=== PATIENT | male | born 1955 | race Caucasian/White ===

== ENCOUNTER 2016-09-09 06:02 | Outpatient (CLI) ==
[2014-06-13 21:22] VITALS: BMI 23.0
[2016-09-09 06:41] LABS: BASOPHILS # (AUTO) 0.1 K/uL (0-0.2); BASOPHILS % (AUTO) 0.7 % (0.0-3.0); EOSINOPHILS # (AUTO) 0.2 K/ul (0.0-0.7); EOSINOPHILS % (AUTO) 3.1 % (0.0-7.0); HEMATOCRIT 44.3 % (42.0-52.0); HEMOGLOBIN 15.8 g/dl (14.0-18.0); IMMATURE GRANULOCYTE % (AUTO) 0.3 % (0.0-5.0); LYMPHOCYTES # (AUTO) 2.4 K/uL (0.60-3.4); LYMPHOCYTES % (AUTO) 35.8 (10.0-50.0); MEAN CORPUSCULAR HEMOGLOBIN 34.2 pg (27.0-31.0); MEAN CORPUSCULAR HGB CONC 35.7 (31.8-35.4); MEAN CORPUSCULAR VOLUME 95.9 fl (80.0-94.0); MONOCYTES # (AUTO) 0.6 K/uL (0.4-2.0); MONOCYTES % (AUTO) 9.5 (0-10); NEUTROPHILS # (AUTO) 3.4 K/ul (2.0-6.9); NEUTROPHILS % (AUTO) 50.6; PLATELET COUNT 363 10^3/uL (140-440); RED BLOOD COUNT 4.62 10^6/ul (4.70-6.10); WHITE BLOOD COUNT 6.76 K/ul (4.2-10.2)
== END 2016-09-09 06:03 | disposition home or self-care (01) ==
LOC: LAB 06:02
PROVIDERS: ATTEND Nurse Practitioner Family
DX: I10 Essential (primary) hypertension (principal); Z12.5 Encounter for screening for malignant neoplasm of prostate
CPT/HCPCS: 36415; 84439; 84443; 85025

== ENCOUNTER 2016-11-17 18:16 | Outpatient (CLI) ==
[2016-10-11 10:37] VITALS: BMI 23.0
[2016-11-17 19:04] LABS: ALBUMIN 3.9 g/dL (3.4-5.0); ALBUMIN/GLOBULIN RATIO 1.5; ANION GAP 12.8; BILIRUBIN,TOTAL 0.52 mg/dL (0.00-1.20); BUN/CREATININE RATIO 10.57; CALCIUM 9.4 mg/dL (8.2-10.2); CREATININE 1.04 mg/dL (0.60-1.10); POTASSIUM 3.8 mmol/L (3.5-5.1); TOTAL PROTEIN 6.5 g/dL (5.8-8.1)
== END 2016-11-17 18:17 | disposition home or self-care (01) ==
LOC: LAB 18:16
PROVIDERS: ATTEND Dermatology
DX: L40.0 Psoriasis vulgaris (principal); Z79.899 Other long term (current) drug therapy
CPT/HCPCS: 36415; 80053

== ENCOUNTER 2017-01-30 06:46 | Day surgery (SDC) ==
[2016-10-11 10:37] VITALS: BMI 23.0
[2017-01-30] MEDS ORDERED: LIDOCAINE 1% 20 ML MDV ID ONE (07:15)
[2017-01-30] MEDS ORDERED: VERSED ONE (08:29)
[2017-01-30] MEDS ORDERED: DIPRIVAN 20 ML VIAL IVP ONE (08:29)
[2017-01-30 09:59] VITALS: BP 145/88; TEMP 97.6
--- NOTE | 2017-01-30 13:09 | OP ---
PROCEDURE: COLONOSCOPY TO THE CECUM WITH SNARE POLYPECTOMY. ENDOSCOPIST: Eladio MOREAU M.D. INDICATION: SCREENING. INSTRUMENT: PCFH-190. MEDICATION: PER ANESTHESIA. PROCEDURE: The patient was positioned for colonoscopy. The digital rectal exam was negative. The colonoscope was inserted through the anus and advanced to the cecum. The cecum was identified using the ileocecal valve and the appendiceal orifice as landmarks. The scope was slowly withdrawn through an adequately prepped colon. A 1.2 cm sessile polyp in the ascending colon is removed using snare cautery. This had a sessile serrated appearance. Complete resection was achieved. The remaining colon was normal with exception of diverticula. Retroflex exam was negative. The patient tolerated the procedure without immediate complication. Withdrawal time 10 minutes and 5 seconds. PLAN: 1. Suggest repeat colonoscopy in one to three years pending pathology report. BENSON
== END 2017-01-30 09:45 | disposition home or self-care (01) ==
LOC: SURG 06:46
PROVIDERS: ATTEND Internal Medicine Gastroenterology
DX: Z12.11 Encounter for screening for malignant neoplasm of colon (principal); D12.2 Benign neoplasm of ascending colon; K57.30 Diverticulosis of large intestine without perforation or abscess without bleeding

== ENCOUNTER 2017-07-20 09:38 | Outpatient (CLI) ==
[2016-10-11 10:37] VITALS: BMI 23.0
--- NOTE | 2017-07-20 14:27 | NM ---
EXAM: Whole body bone scan HISTORY: Carcinoma prostate COMPARISON: None. TECHNIQUE: Anterior and posterior whole body bone scans were obtained following the intravenous admin istration of 26.8 mCi of technetium 99m MDP, followed by spot views of the chest. FINDINGS: There is a intense focal activity involving the left anterior fourth rib. This could be tr aumatic or metastatic. There is a small focal activity as cervical thoracic junction. Increased iso marcie uptake is also seen involving both AC joints and mid lumbar spine compatible with arthritic smith ge. Right hip and right knee prosthesis are seen. Kidneys and soft tissues appear normal. IMPRESSION: 1. Intense focal activity in the left anterior fourth ribs. Another small focal uptake and cervical thoracic junction. Another small focus of mildly increased activity left posterior tenth rib. These lesions could be traumatic or metastatic. Radiographic correlation and follow up recommended. 2. Right hip and right knee prosthesis are visualized. 3. Degenerative changes.
== END 2017-07-20 09:39 | disposition home or self-care (01) ==
LOC: RAD 09:38
PROVIDERS: ATTEND Urology
DX: C61 Malignant neoplasm of prostate (principal)
CPT/HCPCS: 36415

== ENCOUNTER 2017-08-22 06:59 | Outpatient (CLI) ==
[2016-10-11 10:37] VITALS: BMI 23.0
--- NOTE | 2017-08-22 09:22 | CT ---
EXAM: CT abdomen with and without contrast. CT pelvis with and without contrast. HISTORY: Prostate cancer. Frequent urination. COMPARISON: None available. TECHNIQUE: Multiple axial images of the abdomen and pelvis were obtained prior to and following intr avenous administration of 100 mL of Visipaque 320, low osmolar. Images reformatted in the coronal an d sagittal plane. Maximum intensity projection and 3-D reformatted images were created on an [employer] workstation. FINDINGS: Lung bases are clear. There has been previous right hip arthroplasty. Old rib fractures n oted. No osteoblastic lesions are seen. Gallbladder is absent. The liver, pancreas, spleen, adrenal glands are unremarkable. No calcified r enal stones or hydronephrosis detected. There is symmetric renal enhancement and excretion. No alondra ecting system filling defects are seen. The opacified portions of the ureters appear normal although the entirety of the ureters are not opacified with contrast on delayed imaging. No bladder masses a re seen. Prostate measures approximately 4.5 x 3.5 x 3.6 cm. No localized abnormality is detected. No pelvic lymphadenopathy identified although beam-hardening artifact in the right hip arthroplasty d oes somewhat limit evaluation. No iliac chain, retroperitoneal or mesenteric lymphadenopathy identif ied. The bowel is normal in course and caliber without evidence for obstruction or inflammatory process. The appendix is not identified. There may be a small sliding hiatal hernia. Atherosclerotic calcifications present. No free fluid or free air is seen. Fat-containing right in guinal hernia suggested. IMPRESSION: No evidence for metastatic disease in the abdomen or pelvis.
== END 2017-08-22 07:00 | disposition home or self-care (01) ==
LOC: RAD 06:59
PROVIDERS: ATTEND Urology
DX: C61 Malignant neoplasm of prostate (principal)
CPT/HCPCS: 36415; 80048

== ENCOUNTER 2017-09-01 07:36 | Outpatient (CLI) ==
[2016-10-11 10:37] VITALS: BMI 23.0
== END 2017-09-01 07:37 | disposition home or self-care (01) ==
LOC: LAB 07:36
PROVIDERS: ATTEND Urology
DX: C61 Malignant neoplasm of prostate (principal)
CPT/HCPCS: 36415; 84153

== ENCOUNTER 2018-02-13 16:30 | Outpatient (CLI) ==
[2016-10-11 10:37] VITALS: BMI 23.0
== END 2018-02-13 16:31 | disposition home or self-care (01) ==
LOC: LAB 16:30
PROVIDERS: ATTEND Urology
DX: C61 Malignant neoplasm of prostate (principal)
CPT/HCPCS: 36415; 80048

== ENCOUNTER 2018-06-27 17:52 | Outpatient (CLI) ==
[2016-10-11 10:37] VITALS: BMI 23.0
== END 2018-06-27 17:53 | disposition home or self-care (01) ==
LOC: LAB 17:52
PROVIDERS: ATTEND Radiology Radiation Oncology
DX: C61 Malignant neoplasm of prostate (principal)
CPT/HCPCS: 36415; 84153